=== PATIENT | female | born 1965 | race Caucasian/White ===

== ENCOUNTER 2022-08-30 10:33 | Day surgery (SDC) | payer OTHER ==
[2022-08-30] MEDS ORDERED: NA CHLORIDE 0.9% 500 ML ONE (11:05)
[2022-08-30] MEDS ORDERED: LIDOCAINE HCL/EPINEPHRINE 20 ML MDV ONE (11:09)
[2022-08-30] MEDS ORDERED: FENTANYL CITR 100 MCG/2 ML ONE (11:44)
[2022-08-30] MEDS ORDERED: propofoL 200 MG/20 ML VIAL IV ONE (11:45)
[2022-08-30] MEDS: CEFAZOLIN SODIUM 2 GM/VIAL ONE ×2 (11:45→11:50)
[2022-08-30] MEDS ORDERED: MIDAZOLAM HCL 2 MG/2 ML INJ ONE (11:45)
[2022-08-30] MEDS ORDERED: ONDANSETRON 4 MG/2 ML VIAL ONE ×2 (11:46→13:15)
[2022-08-30] MEDS ORDERED: LIDOCAINE 2% MPF 5 ML VIAL ONE (11:46)
[2022-08-30] MEDS ORDERED: dexAMETHasone 4 MG/ML VIAL ONE (12:11)
--- NOTE | 2022-08-30 12:36 | P.OP ---
Preoperative diagnosis: Osteomyelitis of 3rd Toe of LEFT foot Postoperative diagnosis: Osteomyelitis of 3rd Toe of LEFT foot Primary procedure: Amputation of 3rd Toe of LEFT foot Anesthesia: GETA + Local Estimated blood loss: <5cc Specimen: Toe to MT joint Findings: Osteomylitis of Toe Complications: None Transferred to: Recovery Room Condition: Good
[2022-08-30 12:48] VITALS: O2SAT 100
[2022-08-30] MEDS ORDERED: HYDROMORPHONE HCL 1 MG/ML INJ ONE (13:15)
[2022-08-30 14:13] VITALS: BP 138/70; TEMP 97.6
--- NOTE | 2022-08-30 19:03 | OP ---
Date of Procedure: 08/30/2022 Surgeon: Lucien De Dios MD, Preoperative Diagnosis: Osteomyelitis, third toe of the left foot. Postoperative Diagnosis: Osteomyelitis, third toe of the left foot. Procedure: Amputation of third toe of the left foot. Anesthesia: General endotracheal plus local with 0.25% Marcaine. Estimated Blood Loss: 5 cc. Specimen: Toe to the metatarsophalangeal joint. Findings: She has osteomyelitis of the toe. Complications: None. Disposition: The patient was transferred to recovery room in good condition. Procedure In Detail: After informed consent was obtained, the patient was brought to the operating r oom, prepped and draped in the usual sterile fashion after adequate anesthesia was achieved. Demarca ting an area based on the necrosis evident at the metatarsophalangeal joint, I demarcated an area bas ed on a plantar flap using a marking pen circumferentially around the area. I then anesthetized the area of 1% lidocaine with epinephrine additionally and surgically used a 15 blade down through subcut aneous tissues to demarcate an area and top portion of the skin beyond the metatarsophalan geal joint. At this point, I used a combination of sharp dissection with electrocautery to remove th e third phalanx of the left foot down to the metatarsophalangeal joint. The metatarsal head appeared good, clean, and intact without any evidence of osteomyelitis. The toe was at this point and sent off for pathologic examination. I then irrigated the area copiously, achieved hemostasis wi th electrocautery. There was minimal bleeding throughout. I then closed the deep tendinous connecti ons and plantar fascia around the metatarsal head to protect it using interrupted 3-0 Vicryl sutures. I then closed the skin based on the plantar flap using 3-0 nylon sutures in an interrupted fashion with good approximation of tissues. The wound was then copiously irrigated. At this point, a steril e dressing placed over top. The patient tolerated the procedure well without evidence of complicatio n and transferred to PACU in good condition. All counts were correct at the end of the case. TK/MODL Voice ID: [id number] Report ID: [id number]
== END 2022-08-30 14:21 | disposition home or self-care (01) ==
LOC: OR 10:33
PROVIDERS: ATTEND Surgery
PROC: 0Y6U0Z0 Detachment at Left 3rd Toe, Complete, Open Approach (ICD-10-PCS; principal; 2022-08-30 12:00)
DX: M86.8X7 Other osteomyelitis, ankle and foot (principal)
CPT/HCPCS: 88305; 88311; 28820; J2704; J1100; J2001; J2250; J3010; J1170; J2405 ×2; J7040